=== PATIENT | male | born 1995 ===

== ENCOUNTER 2019-03-22 17:03 | Emergency (ER) | payer OTHER ==
[2019-03-22 17:19] VITALS: BP 137/82
--- NOTE | 2019-03-22 17:53 | UC ---
General HPI - HPI Summary HPI Summary: Patient is a 23-year-old male presenting with tick bite to left calf that occurred on 03/18/19. Patient states he got the tick hiking and it was attached for less than 12 hours. Patient removed the tick that same day. Notes in area of redness around the tick bite that has remained constant since he first removed it. Denies increasing redness over the past few days. Denies warmth. Denies drainage or bleeding. Denies tenderness of the area. Denies fever and chills. Denies nausea and vomiting. Patient states he has never had a tick bite and is concerned for Lyme disease. - History of Current Complaint Chief Complaint: UCBiteInjury Stated Complaint: TICK BITE Hx Obtained From: Patient Pain Intensity: 0 - Allergy/Home Medications Allergies/Adverse Reactions: Allergies Allergy/AdvReac Type Severity Reaction Status Date / Time seasonal Allergy Eyes Uncoded 03/22/19 17:17 Itchy/Swollen/Red/Watery Home Medications: Home Medications NK [No Home Medications Reported] 03/22/19 [History Confirmed 03/22/19] PMH/Surg Hx/FS Hx/Imm Hx Previously Healthy: Yes - Surgical History Surgical History: Yes Surgery Procedure, Year, and Place: L meniscus surgery 2011 - Family History Known Family History: Positive: Unknown, Non-Contributory - Social History Alcohol Use: Daily Substance Use Type: Cocaine, Marijuana Substance Use Comment - Amount & Last Used: marijuana daily, cocaine rarely Smoking Status (MU): Current Some Day Smoker Type: eCigarettes Review of Systems All Other Systems Reviewed And Are Negative: No Constitutional: Positive: Negative. Negative: Fever, Chills Skin: Positive: Other - Tick bite to left calf Respiratory: Positive: Negative Cardiovascular: Positive: Negative Gastrointestinal: Positive: Negative Musculoskeletal: Positive: Negative Neurological: Positive: Negative Psychological: Positive: Anxious Physical Exam Triage Information Reviewed: Yes Appearance: Well-Appearing, No Pain Distress, Well-Nourished Vital Signs: Initial Vital Signs Temp 98.4 F 03/22/19 17:17 Pulse 80 03/22/19 17:17 Resp 18 03/22/19 17:17 BP 137/82 03/22/19 17:17 Pulse Ox 96 03/22/19 17:17 Vital Signs Reviewed: Yes Eyes: Positive: Conjunctiva Clear ENT: Positive: Hearing grossly normal Neck: Positive: Supple Respiratory: Positive: No respiratory distress Neurological: Positive: Alert Psychological: Positive: Age Appropriate Behavior Skin: Positive: Other - Small area of erythema noted where tick was attached. No signs of infection. Course/Dx - Course Course Of Treatment: Patient did not receive prophylactic dose of doxycycline since the tick was attached less than 12 hours and was not engorged. I educated the patient on tick bites and Lyme disease and instructed to follow up with PCP if he experiences any symptoms. Educated on signs and symptoms of skin infection and instructed him to monitor the area for the next few days and return if any occur. Patient voiced understanding and agreed with treatment plan. - Diagnoses Provider Diagnosis: Tick bite of left calf Discharge ED - Sign-Out/Discharge Documenting (check all that apply): Patient Departure All imaging exams completed and their final reports reviewed: No Studies - Discharge Plan Condition: Stable Disposition: HOME Patient Education Materials: Lyme Disease (ED), Tick Bite (ED) Referrals: [facility] [place] [facility] [Outside] - If Needed Additional Instructions: As discussed, no treatment of your tick bite is required. Follow up with your PCP or the referral below if you experience a rash where you were the tick bit you within the next month. Return or go to the emergency room if within the next few days you experience fever, nausea and vomiting, or increasing redness, warmth, or drainage from the area. - Billing Disposition and Condition Condition: STABLE Disposition: Home - Attestation Statements Provider Attestation: I was available for consult. This patient was seen by the ADY. The patient was not presented to, seen by, or examined by me. -Arely
== END 2019-03-22 17:45 | disposition home or self-care (01) ==
LOC: UCEAST 17:03
DX: S80.862A Insect bite (nonvenomous), left lower leg, initial encounter (principal); F17.290 Nicotine dependence, other tobacco product, uncomplicated; Z91.09 Other allergy status, other than to drugs and biological substances; W57.XXXA Bitten or stung by nonvenomous insect and other nonvenomous arthropods, initial encounter; Y92.9 Unspecified place or not applicable
CPT/HCPCS: 99201; G0463